=== PATIENT | female | born 1960 | race Caucasian/White ===

== ENCOUNTER → 2016-07-22 | Outpatient (CLI) | payer MEDICARE ==
[~2016-07-22] MED LIST: COZAAR DPS50 MG PO; NORCO 5-325 TA1 EACH PO
== END | disposition home or self-care (01) ==
LOC: RAD.S 07-21 08:30
DX: M54.5 Low back pain (principal); M54.16 Radiculopathy, lumbar region; M48.06 Spinal stenosis, lumbar region